=== PATIENT | male | born 1985 | race Two or more races ===

== ENCOUNTER 2022-07-11 12:20 | Emergency (ER) | payer MEDICAID, SELFPAY ==
[2022-07-11 13:10] VITALS: BP 113/72; PULSE 73; RESP 18; TEMP 36.6; O2SAT 98; BMI 30.5
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
== END 2022-07-11 15:22 | disposition home or self-care (01) ==
PROVIDERS: Emergency Provider Emergency Medicine
DX: Z48.02 Encounter for removal of sutures (principal); S01.01XD Laceration without foreign body of scalp, subsequent encounter; W20.8XXD Other cause of strike by thrown, projected or falling object, subsequent encounter
CPT/HCPCS: 99282; 99283